=== PATIENT | male | born 1945 | race Caucasian/White ===

== ENCOUNTER → 2017-12-20 | Outpatient (CLI) | payer OTHER ==
[~2017-12-20] MED LIST: ASPI325 PO; Aspirin EC81 MG PO; B Complex #11 EACH PO; IBUP800 PO; MOVE FREE JOIN1 EACH PO; OXYACE5T PO; POLY500 PO; SIMV10 PO; TRIHYD253B PO; VITAMIN D35000 UNI1 PO
== END | disposition home or self-care (01) ==
LOC: LAB SHORT 14:40 → LAB 14:40
DX: L02.215 Cutaneous abscess of perineum (principal)
CPT/HCPCS: 87070; 87205

== ENCOUNTER → 2019-01-02 | Outpatient (CLI) | payer OTHER | LOC: PLD 13:39 → LAB SHORT 13:39 | DX: D04.39 Carcinoma in situ of skin of other parts of face (principal) | CPT/HCPCS: 88305 ==

== ENCOUNTER → 2021-11-30 | Outpatient (CLI) | payer OTHER | END | disposition home or self-care (01) | LOC: LAB SHORT 11:11 → PLD 11:11 | DX: D04.39 Carcinoma in situ of skin of other parts of face (principal) | CPT/HCPCS: 88305 ==

== ENCOUNTER → 2021-12-22 | Outpatient (CLI) | payer OTHER | END | disposition home or self-care (01) | LOC: LAB SHORT 14:51 → PLD 14:51 | DX: C44.320 Squamous cell carcinoma of skin of unspecified parts of face (principal) | CPT/HCPCS: 88305 ==

== ENCOUNTER → 2021-12-28 | Outpatient (CLI) | payer OTHER | END | disposition home or self-care (01) | LOC: LAB SHORT 14:58 → PLD 14:58 | DX: D48.5 Neoplasm of uncertain behavior of skin (principal); L90.5 Scar conditions and fibrosis of skin | CPT/HCPCS: 88305 ==

== ENCOUNTER → 2022-05-12 | Outpatient (CLI) | payer OTHER | END | disposition home or self-care (01) | LOC: LAB SHORT 11:47 | DX: C44.629 Squamous cell carcinoma of skin of left upper limb, including shoulder (principal) | CPT/HCPCS: 88305 ==

== ENCOUNTER → 2022-05-23 | Outpatient (CLI) | payer OTHER | END | disposition home or self-care (01) | LOC: LAB SHORT 07:36 → LAB 07:36 | DX: C44.629 Squamous cell carcinoma of skin of left upper limb, including shoulder (principal) | CPT/HCPCS: 88305 ==

== ENCOUNTER → 2022-06-27 | Outpatient (CLI) | payer OTHER | END | disposition home or self-care (01) | LOC: LAB 11:06 → LAB SHORT 11:06 → EDSTATUS 06-27 11:10 → LAB FUT 06-27 11:10 | DX: L03.314 Cellulitis of groin (principal) | CPT/HCPCS: 87070; 87205 ==

== ENCOUNTER 2024-04-26 07:35 | Day surgery (SDC) | payer OTHER ==
[~2024-04-26] VITALS: Ht 170.2 cm; Wt 89.0 kg
[~2024-04-26 07:35] MED LIST changes: +Lactated Ringer's 1,000 ML IV ONE; +propofoL 50 ML IV ONE
[2024-04-26] MEDS ORDERED: CELE100 (09:41)
[2024-04-26] MEDS ORDERED: PROBIOTIC1 EA14 (09:42)
[2024-04-26] MEDS ORDERED: Lactated Ringer's 1,000 ML IV ONE (10:04)
[2024-04-26 11:31] VITALS: BP 126/89
== END 2024-04-26 11:30 | disposition home or self-care (01) ==
LOC: ORSCSDS 07:35
PROVIDERS: Surgery
PROC: 0DBM8ZX Excision of Descending Colon, Via Natural or Artificial Opening Endoscopic, Diagnostic (ICD-10-PCS; principal; 2024-04-26 09:45)
PROC: 0DBE8ZX Excision of Large Intestine, Via Natural or Artificial Opening Endoscopic, Diagnostic (ICD-10-PCS; principal; 2024-04-26 09:45)
DX: Z12.11 Encounter for screening for malignant neoplasm of colon (principal); Z86.0101 Personal history of adenomatous and serrated colon polyps; K63.5 Polyp of colon; K57.30 Diverticulosis of large intestine without perforation or abscess without bleeding; E78.5 Hyperlipidemia, unspecified; I10 Essential (primary) hypertension; Z87.891 Personal history of nicotine dependence; Z79.899 Other long term (current) drug therapy
CPT/HCPCS: 88305; J2704; J7120